=== PATIENT | male | born 2005 | race Caucasian/White ===

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

== ENCOUNTER 2025-05-02 12:08 | Outpatient (REF) | payer MEDICAID, SELFPAY ==
--- OUTSIDE RECORDS SUMMARY | 2025-05-02 10:00 | XMS_ITS | Encounter Summary ---
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, left Procedures Mr Brain w/ and w/o Contrast Glenroy Jimenez MD [address] [place] [address] Phone: tel: fax: [facility] [address] [place] [phone] Phone: tel: fax: Referral ID Status Reason Start Date Expiration Date V isits Requested Visits Authorized [id number] Authorized 05/02/2025 05/02/2026 1 1 Reason for Visit * Reason Comments Eye Problem Encounter Details Date Type Department Care Team (Late st Contact Info) Description 05/02/2025 10:00 AM EST Office Visit [facility] [address] [place] [address] [phone] Glenroy Jimenez MD [address] [place] [phone] Double vision (Primary Dx); 6th nerve palsy, left Social History Tobacco Use Types Packs/Day Years Used Date Smoking Tobacco: Never Passive Smoke Exposure: Never Smokeless Tobacco: Never Tobacco Cessation:Counseling Given: Not Answered Alcohol Use Standard Drinks/Week Comments Never 0 [...] AM EDT documented as of this encounter Last Filed Vital Signs Vital Sign Reading Time Taken Comments Blood Pressure 138/70 05/02/2025 9:45 AM EST Pulse 74 05/02/2025 9:45 AM EST Temperature 36.6 C (97.9 F) 05/02/2025 9:45 AM EST Respiratory Rate 17 05/02/2025 9:45 AM EST Oxygen Saturation 98% 05/02/2025 9:45 AM EST Inhaled Oxygen Concentration - - Weight 80.3 kg (177 lb) 05/02/2025 9:45 AM EST Height - - Body Mass Index 26.14 12/06/2024 10:58 AM EDT documented in this encounter Progress Notes * Glenroy Jimenez MD - 05/02/2025 10:00 AM EST Subjective Patient ID: Oscar Bunn is a 19 y.o. male who presents for Eye Problem. Last seen for [facility] medical visit 12/06/24 for allergic rhinitis and HAYLEY. Here in [facility] today with change in vision. Here alone. Patient reports episodes of double vision over the last 3 to 4 days. While watching TV he has experienced a split screen. He can cover 1 eye and vision looks normal and when he uncovers the eye his vision is double. This happens with both eyes covered and uncovered. He has never had symptoms like this before. He feels like his baseline vision is normal. He has 20/20 vision in each eyetoday. He denies headaches, sweats, weight loss or other visual symptoms. He also denies weakness or ptosis. PMH-Patient Active Problem List: Seasonal allergic rhinitis due to pollen Gastroesophageal reflux disease without esophagitis Review of Systems Constitutional: Negative for fever. HENT: Negative for rhinorrhea and sore throat. Eyes: Positive for visual disturbance. Double vision. Respiratory: Negative for cough and shortness of breath. Gastrointestinal: Negative for abdominal pain, diarrhea and vomiting. Musculoskeletal: Negative for gait problem. Neurological: Negative for syncope, weakness and headaches. No ptosis. Psychiatric/Behavioral: Negative for behavioral problems. Objective Physical Exam Constitutional: General: He is not in acute distress (Comfortable. Easily gives hx.). HENT: Right Ear: Tympanic membrane normal. Left Ear: Tympanic membrane normal. Nose: No rhinorrhea. Mouth/Throat: Mouth: Mucous membranes are moist. Pharynx: Oropharynx is clear. Eyes: Extraocular Movements: Extraocular movements intact. Conjunctiva/sclera: Conjunctivae normal. Pupils: Pupils are equal, round, and reactive to light. Comments: Fundi partially seen bilaterally with sharp disc edge noted. Cardiovascular: Rate and Rhythm: Normal rate and regular rhythm. Heart sounds: No murmur heard. Pulmonary: Effort: Pulmonary effort is normal. No respiratory distress. Breath sounds: Normal breath sounds. Abdominal: Palpations: Abdomen is soft. Tenderness: There is no abdominal tenderness. Musculoskeletal: Cervical back: Neck supple. Skin: General: Skin is warm. Capillary Refill: Capillary refill takes less than 2 seconds. Findings: No rash. Neurological: Mental Status: He is alert and oriented to person, place, and time. Comments: CN 2-12 grossly intact, symmetric DTRs, cerebellar intact to finger to nose and rapid alternating movements, normal gait, toe and heel walk, negative Romberg. Psychiatric: Behavior: Behavior normal. Assessment/Plan Diagnoses and all orders for this visit: Double vision Normal vision here and reassuring neuro exam and no obvious cranial nerve palsy. No history for myasthenia gravis (ptosis, weakness, dysarthria). -Urgent Eye Clinic evaluation today-discussed with Dr. Gamez. -Imaging based on Optho evaluation. -RTC if symptoms worsen, vomiting, LYNNE's, neuro changes or other concerns. * Glenroy Jimenez MD - 05/02/2025 10:00 AM EST Pt seen by Dr. Gamez today and had a 6th nerve palsy. Recommended TFT's and Hgb A1c and brain MRI. Labs ordered and discussed MRI with [facility] and they recommended a brain MRI with and without contrast, ordered. documented in this encounter Miscellaneous Notes * Addendum Note - Glenroy Jimenez MD - 05/02/2025 10:00 AM ESTAddended by: GLENROY JIMENEZ on: 05/02/2025 01:48 PM Modules accepted: Orders * Addendum Note - Glenroy Jimenez MD - 05/02/2025 10:00 AM ESTAddended by: GLENROY JIMENEZ on: 05/02/2025 02:26 PM Modules accepted: Orders documented in this encounter Plan of Treatment Upcoming Encounters Date Type Department Care Team (Late st Contact Info) Description 06/06/2025 11:30 AM EST Office Visit [facility] OPTOMETRY [address] [place] [address] Delmy Gamez, OD [address] [place] [address] Scheduled Orders Name Type Priority Associated Diagnoses Orde r Schedule CBC auto differential Lab Routine Double vision Expected: 05/02/2025 (Approximate), Expires: 05/02/2026 Sed Rate by Modified Westergren Lab Routine Double vision Expected: 05/02/2025, Expires: 05/02/2026 C-reactive Protein Lab Routine Double vision Expected: 05/02/2025 (Approximate), Expires: 05/02/2026 Comprehensive Metabolic Panel Lab Routine Double vision Expected: 05/02/2025 (Approximate), Expires: 05/02/2026 TSH W/Reflex to FT4 Lab Routine Double vision Expected: 05/02/2025 (Approximate), Expires: 05/02/2026 Hemoglobin A1c Lab Routine Double vision Expected: 05/02/2025 (Approximate), Expires: 05/02/2026 Mr Brain w/ and w/o Contrast Imaging Urgent 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
--- OUTSIDE RECORDS SUMMARY | 2025-05-02 11:30 | XMS_ITS | Encounter Summary ---
Author Organization [employer] Address [address] [facility] 7t [place] [address] Care Team Providers Care Hot Blaster Name Role Phone Harmony Mario LULI Primary Care Provider [phone] Encounter Details Date Type Department Care Team (Late st Contact Info) Description 05/02/2025 11:30 AM EST Office Visit [facility] OPTOMETRY [address] [place], [place] [phone] Stewartmanuela Delmy, OD [address] [place], [place] [phone] Left abducens nerve palsy (Primary Dx) Social History Tobacco Use Types Packs/Day Years [...] AM EDT documented as of this encounter Progress Notes * Delmy Gamez, OD - 05/02/2025 11:30 AM EST Eye Care Progress Note Patient ID: Oscar Bunn is a 19 y.o. male. HPI Patient referred from walk-in for new onset diplopia. Patient reports diplopia started 4 days ago. He says his vision doubled when watching TV and returned to single when looking at his phone. He says the doubling only happens at distance and is becoming more frequent. Patient notes that diplopia resolved upon covering an eye. Patient denies blurry vision, eye pain, headaches or dizziness. Patient denies any other associatedsymptoms. Patient says this has never happened before. BP today in walk in 138/70 at 9:45am. Today is the patient's first eye exam. Last edited by Delmy Gamez, MARGARITA on 05/02/2025 12:40 PM. Current Medications[1] Medical History[2] Surgical History[3] Family History[4] Tobacco Use: Low Risk (05/02/2025) Tobacco Smoking Tobacco Use: Never Smokeless Tobacco Use: Never Passive Exposure: Never Allergies[5] ROS Positive for: Eyes Negative for: Constitutional, Gastrointestinal, Neurological, Skin, Genitourinary, Musculoskeletal,HENT, Endocrine, Cardiovascular, Respiratory, Psychiatric, Allergic/Imm, Heme/Lymph Last edited by Delmy Gamez, MARGARITA on 05/02/2025 11:10 AM. Base Eye Exam Visual Acuity (Snellen - Linear) Right Left Dist sc 20/20 20/20 Tonometry ([facility] , 12:32 PM) Right Left Pressure 22 22 Extraocular Movement OD: Full right eye, OS: very mild abduction deficit Dilation Both eyes: 1.0% tropicamide @ 12:38 PM Additional Notes Cover test at distance: Primary gaze: 8pd LET Right gaze: 4pd LET Left gaze: 12pd LET Cover test at near: Primary gaze: 4pd eso Cranial nerve testing: CN5 - equal facial sensation, equal corneal sensation CN7 - equally able to wrinkle forehead, puff cheeks CN8 - equal hearing L/R CN9 & 10 - symmetrical palate/uvula CN11 - able to equally shrug shoulders, turn head CN12 - sticks out tongue straight Slit Lamp and Fundus Exam External Exam Right Left External Normal Normal MRD1 1 mm 2 mm MRD2 4 mm 4 mm Slit Lamp Exam Right Left Lids/Lashes Clean and clear Clean and clear Conjunctiva/Sclera White and quiet White and quiet Cornea Clear Clear Anterior Chamber Deep and quiet, angles open Deep and quiet, angles open Iris Flat Flat Lens Clear Clear Fundus Exam Right Left Vitreous Clear Clear Disc Unicoi with distinct margins Unicoi with distinct margins C/D Ratio Vertical 0.45 0.45 C/D Ratio Horizontal 0.45 0.45 Macula Flat, even pigmentation Flat, even pigmentation Vessels AV 2/3, normal course and caliber AV 2/3, normal course and caliber Periphery No holes/tears/detachments 360 No holes/tears/detachments 360 Assessment and Plan Diagnoses and all orders for this visit: 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 - Ordered A1c, BSL, T3/T4 and TSH. Advised patient to go directly to lab for blood draw - Discussed today's findings with referring walk in doctor, Dr. Jimenez, and agreed neuroimaging is indicated. Dr. Jimenez placing order for urgent MRI - Advised patient to go to ER immediately if other neurological symptoms occur such as headache, dizziness or weakness - Discussed options to temporarily manage diplopia including patching one eye or use of scotch tapeover plano glasses. Advised that it can take 1-2 months for diplopia to resolve. If deviation persists in the future, can consider prism specs RTC with optometry in 1 month for follow up or sooner PRN Orders: - Hemoglobin A1c; Future - T4, free; Future - T3, Free; Future - TSH; Future - Glucose, Fasting; Future Delmy Gamez OD 05/02/2025, 12:45 PM [1] Current Outpatient Medications Medication Sig Dispense Refill fluticasone (Flonase) 50 MCG/ACT nasal spray Administer 2 sprays into each nostril Once per day. Shake gently. Before first use, prime pump. After use, clean tip and replace cap. 16 g 2 loratadine (Claritin) 10 MG tablet Take 1 tablet (10 mg) by mouth Once per day. 30 tablet 2 omeprazole (PriLOSEC) [address] capsule Take 1 capsule (20 mg) by mouth before evening meal. 30 capsule 3 No current facility-administered medications for this visit. [2] History reviewed. No pertinent past medical history. [3] History reviewed. No pertinent surgical history. [4] No family history on file. [5] No Known Allergies documented in this encounter Plan of Treatment Upcoming Encounters Date Type Department Care Team (Late st Contact Info) Description 06/06/2025 11:30 AM EST Office Visit [facility] OPTOMETRY [address] [place] [address] Delmy Gamez OD [address] [place] [address] Pending Results Name Type Priority Associated Diagnoses Date /Time Glucose, Fasting Lab Routine Left abducens nerve palsy 05/02/2025 12:16 PM EST Scheduled Orders Name Type Priority Associated Diagnoses Orde r Schedule T4, free Lab Routine Left abducens nerve palsy Expected: 05/02/2025 (Approximate), Expires: 05/02/2026 T3, Free Lab Routine Left abducens nerve palsy Expected: 05/02/2025 (Approximate), Expires: 05/02/2026 TSH Lab Routine Left abducens nerve palsy Expected: 05/02/2025 (Approximate), Expires: 05/02/2026 documented as of this encounter Procedures Procedure Name Priority Date/Time Associated Diagnosis Comments GLUCOSE Routine 05/02/2025 12:16 PM EST Left abducens nerve palsy documented in this encounter Visit Diagnoses Diagnosis Left abducens nerve palsy- Primary documented in this encounter Additional Health Concerns Assessment Noted Time PHQ-9 Depression Total Score: 5 12/07/19 12:50 PM EDT documented as of this encounter Care Teams Hot Blaster Relationship Specialty Start Date End Date Harmony Mario NP [address] [place] [phone] PCP - General Family Medicine 09/12/24 documented as of this encounter
[2025-05-02 15:18] LABS: CT PCR Urine NOT DETECTED (Not Detect.); NG PCR Urine NOT DETECTED (Not Detect.)
--- OUTSIDE RECORDS SUMMARY | 2025-05-02 16:00 | XMS_ITS | Encounter Summary ---
Author Organization [employer] Address [address] [facility] 7t [place] [address] Care Team Providers Care Sap Portal Architect Name Role Phone Harmony Mario LULI Primary Care Provider [phone] Encounter Details Date Type Department Care Team (Latest Contact Info) Description 05/02/2025 Travel Social History Tobacco Use Types Packs/Day [...] AM EDT documented as of this encounter Plan of Treatment Upcoming Encounters Date Type Department Care Team (Late st Contact Info) Description 06/06/2025 11:30 AM EST Office Visit [facility] OPTOMETRY [address] [place] [address] TarkaTeenaDelmy, OD [address] [place] [address] documented as of this encounter Visit Diagnoses Not on filedocumented in this encounter Additional Health Concerns Assessment Noted Time PHQ-9 Depression Total Score: 5 12/07/19 25 12:50 PM EDT documented as of this encounter Care Teams Sap Portal Architect Relationship Specialty Start Date End Date Harmony Mario NP [address] [place] [id number] PCP - General Family Medicine 09/12/24 documented as of this encounter
--- OUTSIDE RECORDS SUMMARY | 2025-05-02 16:01 | XMS_ITS | Encounter Summary ---
Author Organization [employer] Address [address] [facility] 7t [place] [address] Care Team Providers Care Video Manager Name Role Phone Harmony Mario NP Primary Care Provider [phone] Encounter Details Date Type Department Care Team (Late st Contact Info) Description 05/02/2025 Orders Only [facility] MEDICINE [address] [place], [place] [phone] Harmony Mario NP [address] [place] [address] Social History Tobacco Use Types Packs/Day Years [...] Description 06/06/2025 11:30 AM EST Office Visit [facility] OPTOMETRY [address] [place] [address] TarDelmy roy, OD [address] [place] [address] documented as of this encounter Procedures Procedure Name Priority Date/Time Associated Diagnosis Comments CHLAMYDIA/TRICHOMON /NEISSERIA GONORRHOEAE, PCR, URINE Routine 05/02/2025 12:16 PM EST documented in this encounter Results * Chlamydia/Trichomonas/Neisseria gonorrhoeae, PCR, Urine (05/02/2025 12:16 PM EST) CT PCR, Urine NOT DETECTED Not Detect. [facility] Comment:A not detected test result does not exclude the possibilityof infection because test results can be affected byimproper specimen collection, concurrent antibiotic therapy,or the number of organisms in the specimen which may bebelow the sensitivity of the test. As with many diagnostictests, results from the Xpert CT/NG assay should beinterpreted in conjunction with other laboratory andclinical data available to the clinician.The Xpert CT/NG assay should not be used for the evaluationof suspected sexual abuse or for other medico-legalindications. Additional testing is recommended in anycircumstance when false positive or false negative resultscould lead to adverse medical, social or psychologicalconsequences. NG PCR, Urine NOT DETECTED Not Detect. [facility] Comment:A not detected test result does not exclude the possibilityof infection because test results can be affected byimproper specimen collection, concurrent antibiotic therapy,or the number of organisms in the specimen which may bebelow the sensitivity of the test. As with many diagnostictests, results from the Xpert CT/NG assay should beinterpreted in conjunction with other laboratory andclinical data available to the clinician.The Xpert CT/NG assay should not be used for the evaluationof suspected sexual abuse or for other medico-legalindications. Additional testing is recommended in anycircumstance when false positive or false negative resultscould lead to adverse medical, social or psychologicalconsequences. 05/02/2025 12:1 6 PM EST 05/02/2025 1:33 PM EST us Harmony Mario NP LAB URINE ORDERABLES Final Resul t [facility] [address] [place] [phone] documented in this encounter Visit Diagnoses Not on filedocumented in this encounter Additional Health Concerns Assessment Noted Time PHQ-9 Depression Total Score: 5 12/07/19 25 12:50 PM EDT documented as of this encounter Care Teams Video Manager Relationship Specialty Start Date End Date Harmony Mario NP [address] [place] [address] PCP - General Family Medicine 09/12/24 documented as of this encounter
--- OUTSIDE RECORDS SUMMARY | 2025-05-02 16:01 | XMS_ITS | Clinical Summary ---
Author Organization [email or web address] Address [address] [address] [facility] [address] [place] [address] Care Team Providers Care Museum Guide Name Role Phone Harmony Mario LULI Primary Care Provider [phone] Allergies No known active allergies Medications omeprazole (PriLOSEC) [address] capsuleIndicati ons:Hyperactive gag reflex Take 1 capsule (20 mg) by mouth before evening meal. 30 capsule 3 3 Active fluticasone (Flonase) 50 MCG/ACT nasal spray Administer 2 sprays into each nostril Once per day. Shake gently. Before first use, prime pump. After use, clean tip and replace cap. 16 g 2 5 12/07/19 26 Active loratadine (Claritin) 10 MG tablet Take 1 tablet (10 mg) by mouth Once per day. 30 tablet 2 5 Active Active Problems Problem Noted Date Diagnosed Date Seasonal allergic rhinitis due to pollen 025 Assessment & Plan (12/06/2024 1:27 PM EDT): Rx as written below Health care maintenance 12/06/2024 Assessment & Plan (12/06/2024 1:27 PM EDT): Anticipatory guidance reviewed Gastroesophageal reflux disease without esophagi tis 12/06/2024 Assessment & Plan (12/06/2024 1:27 PM EDT): Reviewed small frequent meals, triggers including skipping meals and heavy foods after intake Encounters Date Type Department Care Team Description 05/02/2025 11:30 AM EST Office Visit [facility] [address] [place] [address] Tarka, Delmy, OD Left abducens nerve palsy (Primary Dx) 05/02/2025 10:00 AM EST Office Visit [facility] [address] [place] [address] Glenroy Jimenez MD Double vision (Primary Dx); 6th nerve palsy, left 05/02/2025 Orders Only [facility] [address] [place] [address] Harmony Mario NP 05/02/2025 Travel from Last 3 Months Immunizations Immunization Administration Dates Next Due DTP 08/14/2009, 7,01/30/2006,12/01,2005 HPV 9-Valent 12/22/2018,01/14/2018 Hep A, ped/adol, 2 dose 02/18/2007,08/14/2006 Hep B, Adolescent or Pediatric 6,2005,2005,07/27 Hib ([facility]) 10/29/2006, 6,2005,09/30 IPV 08/14/2009, 6,2005,09/30 Influenza injectable quadriv alent IIV4 with preservative 08/11/2022 Influenza injectable quadriv alent preservative free 03/05/2020 Influenza live intranasal qu adrivalent LIAV4 03/06/2021 Influenza, IIV3, injectable 06/23/2011, 1 Influenza, live, intranasal 02/03/2014 MMR 08/14/2009,08/14/2006 Meningococcal MCV4P [id number]-135 10/18/2021,01/15/20 18 Pneumococcal Conjugate PCV 7 10/29/2006, 01/30/2006,2005,09/30 Tdap 01/14/2018 Varicella 08/14/2009,08/14/2006 Social History Tobacco Use Types Packs/Day Years [...] Don't know 03/17/2022 10 :18 AM EDT Last Filed Vital Signs Vital Sign Reading Time Taken Comments Blood Pressure 138/70 05/02/2025 9:45 AM EST Pulse 74 05/02/2025 9:45 AM EST Temperature 36.6 C (97.9 F) 05/02/2025 9:45 AM EST Respiratory Rate 17 05/02/2025 9:45 AM EST Oxygen Saturation 98% 05/02/2025 9:45 AM EST Inhaled Oxygen Concentration - - Weight 80.3 kg (177 lb) 05/02/2025 9:45 AM EST Height 175.3 cm (5' 9 ) 12/06/2024 10:58 AM EDT Body Mass Index 26.14 12/06/2024 10:58 AM EDT Plan of Treatment Upcoming Encounters Date Type Department Care Team (Late st Contact Info) Description 06/06/2025 11:30 AM EST Office Visit [facility] [address] [place] [address] Delmy Gamez, OD [address] [place] [address] Health Maintenance Due Date Last Done Comments Family Planning (PISQ) 2020 Fluoride Varnish 02/23/2021 08/24/2020, , 07/02/2016 Meningococcal B Vaccine (1 of 2 - Standard) 2021 Hepatitis C Screening 07/28/2023 COVID-19 Vaccine ( - season) 2025 Influenza Vaccine (#1) 2025 , 03/06/2021, 03/05/2020, Additional history exists Alcohol/Substance Use Screening 12/06/2025 12/06/2024 Depression Screening 12/06/2025 12/06/2024, 12/07/19 25 Disability Screening 12/06/2025 12/06/2024 SDOH Screening 12/06/2025 12/06/2024 Chlamydia and Gonorrhea Screening 05/02/2026 05/02/2025, 12/06/2024, 03/06/2021, Additional history exists Tobacco Screening 05/02/2026 05/02/2025 DTaP/Tdap/Td Vaccines (7 - Td or Tdap) 01/15/2028 01/14/2018, 08/14/2009, 10/29/2006, Additional history exists Zoster Vaccines (1 of 2) 07/28/2055 RSV Patients and Patients Aged 60 years or older (1 - 1-dose 75+ series) 2080 Hepatitis B Vaccines Completed 01/30/2006, 2005, 2005, Additional history exists HIB Vaccines Completed 10/29/2006, 01/16, 2005, Additional history exists Pneumococcal Vaccine: Pediatrics (0 to 5 Years) and At-Risk Patients (6 to 49) Years Aged Out 10/29/2006, 01/30/2006, 2005, Additional history exists No longer eligible based on patient's age to complete this topic Hepatitis A Vaccines Completed 02/18/2007, 08/15/19 07 IPV Vaccines Completed 08/14/2009, 01/16, 2005, Additional history exists MMR Vaccines Completed 08/14/2009, 08/14/2006 Varicella Vaccines Completed 08/14/2009, 08/14/2006 HPV Vaccines Completed 12/22/2018, 01/14/2018 HIV Screening Completed 08/30/2021 Meningococcal Vaccine Completed 10/18/2021, 018 RSV under 20 months Aged Out No longe r eligible based on patient's age to complete this topic Rotavirus Vaccines Aged Out No longer eligible based on patient's age to complete this topic Procedures Procedure Name Priority Date/Time Associated Diagnosis Comments CHLAMYDIA/TRICHOMONA S/NEISSERIA GONORRHOEAE, PCR, URINE Routine 05/02/2025 12:16 PM EST GLUCOSE Routine 05/02/2025 12:16 PM EST Left abducens nerve palsy HIV 1/2 ANTIGEN/ANTIBODY, FOURTH GENERATION W/RFL Routine 08/30/2021 1:23 PM EDT TOPICAL APPLICATION OF FLUORIDE VARNISH Routine 08/24/2020 12:00 AM EDT from Last 3 Months or Most Recently Relevant to Health Maintenance Results * Chlamydia/Trichomonas/Neisseria gonorrhoeae, PCR, Urine (05/02/2025 12:16 PM EST) CT PCR, Urine NOT DETECTED Not Detect. [facility] Comment:A not detected test result [...] NG PCR, Urine NOT DETECTED Not Detect. [facility] Comment:A not detected test result [...] 6 PM EST 05/02/2025 1:33 PM EST Harmony Mario NP LAB URINE ORDERABLES Final Resul t [facility] [address] [place] [phone] * HIV 1/2 ANTIGEN/ANTIBODY,FOURTH GENERATION W/RFL (08/30/2021 1:23 PM EDT) HIV-1/2 ANTIGEN AND ANTIBODIES, 4TH GENERATION W/ REFLEX NON-REACT ADIN NON-REACT ADIN [facility] Comment: HIV-1 antigen and HIV-1/HIV-2 antibodies were not detected. There is no laboratory evidence of HIV infection. PLEASE NOTE: This information has been disclosed to you from records whose confidentiality may be protected by state law. If your state requires such protection, then the state law prohibits you from making any further disclosure of the information without the specific written consent of the person to whom it pertains, or as otherwise permitted by law. A general authorization for the release of medical or other information is NOT sufficient for this purpose. For additional information please refer to http://education[employer]/faq/OOR443 (This link is being provided for informational/ educational purposes only.) The performance of this assay has not been clinically validated in patients less than 2 years old. 08/30/2021 1:23 PM EDT us Marilia Mendenhall DO LAB BLOOD ORDERABLES Final Re sult [facility] [address] from Last 3 Months or Most Recently Relevant to Health Maintenance Insurance [facility] Care Teams Museum Guide Relationship Specialty Start Date End Date Harmony Mario NP [address] [place] [phone] PCP - General Family Medicine 09/12/24
[2025-05-02 16:37] LABS: Free T4 (Free Thyroxine) 1.16 ng/dL (0.71-1.85); Thyroid Stimulating Hormone 1.58 uIU/mL (0.32-4.0)
== END 2025-05-02 12:09 | disposition home or self-care (01) ==
LOC: HO.HHCL 12:08
PROVIDERS: PCP Nurse Practitioner Family; Visit Provider Optometrist
DX: H49.22 Sixth [abducent] nerve palsy, left eye (principal); H53.2 Diplopia; Z20.2 Contact with and (suspected) exposure to infections with a predominantly sexual mode of transmission; Z78.9 Other specified health status
CPT/HCPCS: 36415; 82947; 83036; 84439; 84443; 84481; 87491; 87591